=== PATIENT | female | born 1960 | race Caucasian/White ===

== ENCOUNTER → 2018-11-29 | Outpatient (CLI) | payer OTHER, MEDICAID ==
[~2018-11-29] MED LIST: ACETAMINOPHEN-1 EAC1 PO; ALBUTEROL INH INH; ALBUTEROL2.5 MG/31 INH; AMOXICILLIN875 MG PO; ATIVAN1 MG; AUGMENTIN 875875 MG PO; AZITHROMYCIN 2250 MG PO; BACTRIM 400-801 EACH PO; CENTRUM SILVER1 EAC4 PO; CHERACOL COUGH120 ML PO; CIPRO500 MG PO; CIPROFLOXACIN500 M1 PO; CLONAZEPAM; CLONAZEPAM 1 MG1 M1 PO; DESYREL150 MG PO; DIFLUCAN200 MG PO; DIPHENHIST50 MG PO; FISHOIL; GABAPENTIN 100100 MG PO; GABAPENTIN PO; GLUMETZA500; HYDROCODONE BT1 EAC1; KEFLEX500 MG PO; LIDODERM 5%1 PATCH TOP; MEDROL DOSPAK21 TAB PO; MEDROLDOSEPACK PO; METFORMIN HCL500 MG PO; MULTIVITAMINS; NEXIUM40 MG; NORCO 5-325 TA1 EAC1 PO; OLEPTRO ER150 MG; OMEGA-31000 M1 PO; OMEGA-31000 MG PO; OMEPRAZOLE10 MG PO; OXYCODONE HCL5 M1 PO; PENICILLIN V P500 MG PO; PHENAZOPYRIDIN200 M2 PO; PREDNISONE 10 M10 M1 PO; PRILOSEC20 MG PO; PROAIR HFA8.5 GM INH; PROMETHAZINE D480 ML PO; RISPERDAL; RISPERDAL0.25 MG PO; ROBAXIN 750 MG750 M1 PO; ROBITUSSIN DM118 ML PO; TESSALON PERLE100 MG PO; TESSALON200 MG PO; TRAZODONE 150150 M1 PO; VENTOLIN HFA INH8 GM IH; VENTOLIN17 GM INH; VICOPROFEN; VICOPROFEN 2001 EAC1 PO; VICOPROFEN 2001 EACH PO; Vicoprofen; ZPAK PO
== END ==
LOC: M.MRI 11-28 13:30
DX: M51.25 Other intervertebral disc displacement, thoracolumbar region (principal); M43.26 Fusion of spine, lumbar region

== ENCOUNTER 2019-02-03 13:13 | Emergency (ER) | payer OTHER, MEDICAID ==
[~2019-02-03] VITALS: Ht 165.1 cm; Wt 94.8 kg
[2019-02-03] MEDS ORDERED: REMERON15 M2 PO (13:22)
[2019-02-03 13:27] LABS: URINE BILIRUBIN NEGATIVE (Negative); URINE BLOOD TRACE (Negative); URINE CLARITY CLEAR; URINE COLOR YELLOW; URINE GLUCOSE-RANDOM NEGATIVE (Negative); URINE KETONES TRACE (Negative); URINE LEUKOCYTES-REFLEX NEGATIVE (Negative); URINE NITRITE-REFLEX NEGATIVE (Negative); URINE PROTEIN NEGATIVE (Negative); URINE SPECIFIC GRAVITY 1.025 (1.005-1.030); URINE UROBILINOGEN 0.2 E.U./dl (0.2-1.0)
[2019-02-03 13:38] LABS: ABSOLUTE EOSINOPHILS 0.1 thou/uL (0.0-0.7); ABSOLUTE LYMPHOCYTES 2.1 thou/uL (0.8-5.3); ABSOLUTE MONOCYTES 0.6 thou/uL (0.0-1.2); ABSOLUTE NEUTROPHILS 4.5 thou/uL (1.6-8.1); BASOPHILS 0.6 %; EOSINOPHILS 1.9 %; HEMATOCRIT 38.4 % (37.0-47.0); HEMOGLOBIN 12.9 gm/dL (12.0-15.0); LYMPHOCYTES 28.3 %; MCHC 33.7 g/dL (28.0-37.0); MCV 86.1 fL (80.0-100.0); MONOCYTES 7.6 %; MPV 7.5 fl. (7.2-11.1); NUCLEATED RBCS 0 /100WBC; PLATELET COUNT* 157 thou/uL (150-400); POLYS 61.6 %; RBC 4.46 mil/uL (4.20-5.00); RDW-CV 13.8 % (10.5-14.5); WBC 7.3 thou/uL (4.0-11.0)
[2019-02-03 13:46] LABS: ALBUMIN 3.3 g/dL (3.4-5.0); CALCIUM 8.6 mg/dL (8.5-10.1); CREATININE 1.1 mg/dL (0.6-1.3); POTASSIUM 3.9 mmol/L (3.5-5.1); TOTAL BILIRUBIN 0.3 mg/dL (<0.1-1.0); TOTAL PROTEIN 7.1 g/dL (6.4-8.2)
[2019-02-03 15:24] VITALS: BP 150/72
== END 2019-02-03 15:25 | disposition home or self-care (01) ==
LOC: M.ERS 13:13
PROVIDERS: Nurse Practitioner Family
DX: R10.31 Right lower quadrant pain (principal); F17.210 Nicotine dependence, cigarettes, uncomplicated; G89.29 Other chronic pain; M54.9 Dorsalgia, unspecified; J44.9 Chronic obstructive pulmonary disease, unspecified; F41.9 Anxiety disorder, unspecified; E11.9 Type 2 diabetes mellitus without complications; F32.9 Major depressive disorder, single episode, unspecified; K74.60 Unspecified cirrhosis of liver; Z90.710 Acquired absence of both cervix and uterus

== ENCOUNTER 2019-05-20 12:18 | Emergency (ER) | payer OTHER, MEDICAID ==
[~2019-05-20] VITALS: Ht 165.1 cm; Wt 94.8 kg
[~2019-05-20 12:18] MED LIST changes: +REMERON15 M2 PO
[2019-05-20] MEDS ORDERED: MEDROL DOSPAK21 TA1 PO (12:55)
[2019-05-20] MEDS ORDERED: ZPAK PO (12:55)
[2019-05-20 13:04] VITALS: BP 126/72
== END 2019-05-20 13:05 | disposition home or self-care (01) ==
LOC: M.ERS 12:18
DX: J06.9 Acute upper respiratory infection, unspecified (principal); M54.9 Dorsalgia, unspecified; G89.29 Other chronic pain; E11.9 Type 2 diabetes mellitus without complications; J44.9 Chronic obstructive pulmonary disease, unspecified; K74.60 Unspecified cirrhosis of liver; F41.9 Anxiety disorder, unspecified; F32.9 Major depressive disorder, single episode, unspecified; F17.210 Nicotine dependence, cigarettes, uncomplicated; Z90.710 Acquired absence of both cervix and uterus

== ENCOUNTER 2020-12-19 13:56 | Emergency (ER) | payer OTHER, MEDICAID ==
[~2020-12-19] VITALS: Ht 165.1 cm; Wt 94.8 kg
[~2020-12-19 13:56] MED LIST changes: +MEDROL DOSPAK21 TA1 PO
[2020-12-19 14:05] VITALS: BP 136/75
[2020-12-19] MEDS ORDERED: PROAIR HFA8.5 GM INH (14:11)
[2020-12-19] MEDS ORDERED: VIRTUSSIN AC L118 ML PO (14:11)
[2020-12-19] MEDS ORDERED: PREDNISONE 20 M20 MG PO (14:11)
[2020-12-19] MEDS ORDERED: AMOXIL 875 MG875 M1 PO (14:11)
== END 2020-12-19 14:24 | disposition home or self-care (01) ==
LOC: M.ERS 13:56
DX: J20.9 Acute bronchitis, unspecified (principal); E11.9 Type 2 diabetes mellitus without complications; F41.9 Anxiety disorder, unspecified; F32.9 Major depressive disorder, single episode, unspecified; F17.210 Nicotine dependence, cigarettes, uncomplicated; Z20.822 Contact with and (suspected) exposure to COVID-19; Z98.890 Other specified postprocedural states; Z90.711 Acquired absence of uterus with remaining cervical stump; Z79.899 Other long term (current) drug therapy

== ENCOUNTER 2021-02-07 12:38 | Emergency (ER) | payer OTHER, MEDICAID ==
[~2021-02-07] VITALS: Ht 167.6 cm; Wt 90.7 kg
[~2021-02-07 12:38] MED LIST changes: +AMOXIL 875 MG875 M1 PO; +PREDNISONE 20 M20 MG PO; +VIRTUSSIN AC L118 ML PO
[2021-02-07] MEDS ORDERED: DOXYCYCLINE 10100 MG PO (14:20)
[2021-02-07] MEDS ORDERED: ACYCLOVIR 200200 MG PO (14:20)
[2021-02-07 14:26] VITALS: BP 131/65
== END 2021-02-07 14:27 | disposition home or self-care (01) ==
LOC: M.ERS 12:38
DX: L53.9 Erythematous condition, unspecified (principal); G89.29 Other chronic pain; E11.9 Type 2 diabetes mellitus without complications; F17.210 Nicotine dependence, cigarettes, uncomplicated; Z90.710 Acquired absence of both cervix and uterus; Z86.19 Personal history of other infectious and parasitic diseases

== ENCOUNTER 2021-05-04 21:18 | Emergency (ER) | payer OTHER, MEDICAID ==
[~2021-05-04] VITALS: Ht 165.1 cm; Wt 89.8 kg
[~2021-05-04 21:18] MED LIST changes: +ACYCLOVIR 200200 MG PO; +DOXYCYCLINE 10100 MG PO
[2021-05-04] MEDS ORDERED: PEPCID40 MG PO (22:09)
[2021-05-04] MEDS ORDERED: PREDNISONE50 MG PO (22:09)
[2021-05-04 22:47] VITALS: BP 130/79
== END 2021-05-04 22:48 | disposition home or self-care (01) ==
LOC: M.ERS 21:18
DX: L50.9 Urticaria, unspecified (principal); Z86.19 Personal history of other infectious and parasitic diseases; E11.9 Type 2 diabetes mellitus without complications; F17.210 Nicotine dependence, cigarettes, uncomplicated; Z79.84 Long term (current) use of oral hypoglycemic drugs; Z79.899 Other long term (current) drug therapy

== ENCOUNTER 2021-05-07 00:35 | Emergency (ER) | payer OTHER, MEDICAID ==
[~2021-05-07] VITALS: Ht 165.1 cm; Wt 89.8 kg
[~2021-05-07 00:35] MED LIST changes: +PEPCID40 MG PO; +PREDNISONE50 MG PO
[2021-05-07 01:40] LABS: ABSOLUTE LYMPHOCYTES 1.6 thou/uL (0.8-5.3); ABSOLUTE MONOCYTES 0.7 thou/uL (0.0-1.2); ABSOLUTE NEUTROPHILS 11.5 thou/uL (1.6-8.1); BASOPHILS 0.4 %; EOSINOPHILS 0.1 %; HEMATOCRIT 33.2 % (37.0-47.0); HEMOGLOBIN 11.6 gm/dL (12.0-15.0); LYMPHOCYTES 11.4 %; MCH 29.5 pg (26.0-34.0); MCV 84.2 fL (80.0-100.0); MONOCYTES 5.1 %; MPV 7.2 fl. (7.2-11.1); NUCLEATED RBCS 0 /100WBC; PLATELET COUNT* 241 thou/uL (150-400); RBC 3.95 mil/uL (4.20-5.00); RDW-CV 13.2 % (10.5-14.5); WBC 13.8 thou/uL (4.0-11.0)
[2021-05-07 01:58] LABS: ALBUMIN 2.8 g/dL (3.4-5.0); CALCIUM 7.7 mg/dL (8.5-10.1); CREATININE 1.1 mg/dL (0.6-1.3); POTASSIUM 3.7 mmol/L (3.5-5.1); TOTAL BILIRUBIN 0.2 mg/dL (<0.1-1.0); TOTAL PROTEIN 6.6 g/dL (6.4-8.2)
[2021-05-07] MEDS ORDERED: prednisone PO (05:07)
[2021-05-07 05:39] VITALS: BP 147/70
== END 2021-05-07 05:40 | disposition home or self-care (01) ==
LOC: M.ERS 00:35
PROVIDERS: Emergency Medicine
DX: R22.0 Localized swelling, mass and lump, head (principal); T78.40XA Allergy, unspecified, initial encounter; G89.29 Other chronic pain; E11.9 Type 2 diabetes mellitus without complications; F17.210 Nicotine dependence, cigarettes, uncomplicated; Z88.6 Allergy status to analgesic agent; Z79.899 Other long term (current) drug therapy; Z86.73 Personal history of transient ischemic attack (TIA), and cerebral infarction without residual deficits; Y92.89 Other specified places as the place of occurrence of the external cause

== ENCOUNTER 2021-05-22 18:24 | Emergency (ER) | payer OTHER, MEDICAID ==
[~2021-05-22] VITALS: Ht 165.1 cm; Wt 88.9 kg
[~2021-05-22 18:24] MED LIST changes: +prednisone PO
[2021-05-22] MEDS ORDERED: VIRTUSSIN AC L118 ML PO ×2 (19:41→19:46)
[2021-05-22 20:02] VITALS: BP 112/70
== END 2021-05-22 20:02 | disposition home or self-care (01) ==
LOC: M.ERS 18:24
DX: J06.9 Acute upper respiratory infection, unspecified (principal); Z20.822 Contact with and (suspected) exposure to COVID-19; G89.29 Other chronic pain; E11.9 Type 2 diabetes mellitus without complications; F17.210 Nicotine dependence, cigarettes, uncomplicated; Z90.710 Acquired absence of both cervix and uterus; Z98.890 Other specified postprocedural states; Z88.8 Allergy status to other drugs, medicaments and biological substances

== ENCOUNTER 2021-06-06 17:29 | Emergency (ER) | payer OTHER, MEDICAID ==
[~2021-06-06] VITALS: Ht 165.1 cm; Wt 89.8 kg
[2021-06-06] MEDS ORDERED: ZPAK PO (18:57)
[2021-06-06] MEDS ORDERED: MEDROLDOSEPACK PO (18:57)
[2021-06-06 19:10] VITALS: BP 109/61
[2021-06-06] MEDS ORDERED: PROMETHAZINE V120 ML PO (19:17)
== END 2021-06-06 19:26 | disposition home or self-care (01) ==
LOC: M.ERS 17:29
DX: J22 Unspecified acute lower respiratory infection (principal); Z20.822 Contact with and (suspected) exposure to COVID-19; F17.210 Nicotine dependence, cigarettes, uncomplicated; E11.9 Type 2 diabetes mellitus without complications; Z88.6 Allergy status to analgesic agent; Z90.710 Acquired absence of both cervix and uterus; Z79.899 Other long term (current) drug therapy

== ENCOUNTER 2021-10-24 12:21 | Emergency (ER) | payer OTHER, MEDICAID ==
[~2021-10-24] VITALS: Ht 165.1 cm; Wt 89.4 kg
[~2021-10-24 12:21] MED LIST changes: +PROMETHAZINE V120 ML PO
[2021-10-24] MEDS ORDERED: TESSALON PERLE100 MG PO (14:17)
[2021-10-24] MEDS ORDERED: ZPAK PO (14:17)
[2021-10-24] MEDS ORDERED: ALBUTEROL2.5 MG/31 INH (14:17)
[2021-10-24 14:26] VITALS: BP 116/81
== END 2021-10-24 14:27 | disposition home or self-care (01) ==
LOC: M.ERS 12:21
DX: J44.1 Chronic obstructive pulmonary disease with (acute) exacerbation (principal); F41.9 Anxiety disorder, unspecified; E11.9 Type 2 diabetes mellitus without complications; F32.9 Major depressive disorder, single episode, unspecified; F17.210 Nicotine dependence, cigarettes, uncomplicated; Z90.710 Acquired absence of both cervix and uterus; Z90.89 Acquired absence of other organs; Z79.899 Other long term (current) drug therapy